=== PATIENT | female | born 1975 | race Caucasian/White ===

== ENCOUNTER 2023-05-06 00:13 | Day surgery (SDC) | payer BC, SELFPAY ==
[2023-04-29 12:50] VITALS: BMI 32.0
--- NOTE | 2023-04-29 12:56 | PC.NURSE ---
Report to the Outpatient Waiting Room, entrance under the green pavilion located off [facility], at time _1100_ on date _05/06/23_. Planned Procedure Time: __1300_. Time changes happen often and if your time is changed the preop area will call you the afternoon before. - You and your visitor will be asked to self-screen and do not enter if you have any COVID symptoms. - A mask is optional within the hospital at this time. Patients may have clear liquids (water, carbonated beverages, clear teas, apple juice) until 3 hours prior to surgery with a maximum of 20 ounces. - No food from midnight until time of surgery - Infants may have breast milk until 4 hours before surgery, formula 6 hours prior to surgery. - Children will be allowed to drink immediately following surgery. If applicable, please bring a bottle or sippy cup to assist with drinking. Juice, water, soda, and popsicles are readily available. For infants on formula, please bring formula the day of surgery. Pacifiers are allowed. Take the following medications with a SIP of water the morning of surgery: NONE____ DO NOT STOP ANY OF YOUR OTHER PRESCRIPTION MEDICATIONS PRIOR TO SURGERY ?EXCEPT THE FOLLOWING Medications to discontinue per physician VITAMINS/ SUPPLIMENTS Date to take last dose__05/03/23 Please no make-up, nail gambian, hairspray, perfume, deodorant, or body powder the day of surgery. No jewelry (including any body piercings) or valuables the day of surgery, leave them at home. Please take a shower or bath the night before, or the morning of, surgery with an antibacterial soap. Wear comfortable, loose fitting clothing. Children are encouraged to wear pajamas. - Jewelry must be removed prior to entering the operating room. Rings and piercings that are not removed may be cut off. - The hospital will not accept responsibility for valuables. - Please leave all valuables, including medications, at home the day of surgery. If you are going home after surgery, a licensed tractor trailer truck driver must drive you home. - NO public transportation without another adult if you receive anesthesia. - We recommend that an adult stay with you for 24 hours following discharge. - We also recommend that you do not drive, make important decision, drink alcoholic beverages, or take any drugs that were not prescribed by your health care provider for at least 24 hours after your discharge time. For Pediatric surgeries, we recommend two adults accompany the child home. Follow any additional instructions given to you from your surgeon. If you or anyone in your household have experienced Covid symptoms in the past week, please notify your surgeon or the nurse liaison at the phone number below for possible testing. Telephone instructions given to _PATIENT___and asked if any additional questions and then verbalized understanding. Patient advised to call surgeon office or pre surgery nurse liaison [phone] if any additional questions.
--- NOTE | 2023-05-05 14:17 | P.PNAN_ITS ---
Anes - Initial Pre Proc Eval Procedure: Operation Date: 05/06/23 12:00 Proposed Procedures p Excision Bita Duct Cyst - Jorgito Girard MD Date/Time: 05/05/23 14:17 Surgeon: Jorgito Girard MD Pre Op Diagnosis: bita duct cyst Patient Data Age: 47 Gender: F Height: 1.68 m Weight: 90 kg Allergies Allergy/AdvReac Type Severity Reaction Status Date / Time fentanyl AdvReac Intermediate ITCHING, Verified 05/06/23 10:21 HEART RACING, N/V metronidazole AdvReac Intermediate Numbness Verified 05/06/23 10:21 oxycodone AdvReac Intermediate ITCHING, Verified 05/06/23 10:21 HEART RACING, N/V Home Medications Medication Instructions Recorded Confirmed Type Adults Multivitamin 1 tab-cap PO DAILY 04/29/23 04/29/23 History Lactobac.acidophilus-Bifido.animalis 1 tablet PO DAILY 04/29/23 04/29/23 History 1.5 billion cell chewable tablet estradiol 0.01% (0.1 mg/gram) 1 g vaginal 2XW 04/29/23 05/06/23 History vaginal cream guar gum 1 gram chewable tablet 1 g PO DAILY 04/29/23 04/29/23 History amoxicillin 875 mg-potassium 1 tablet PO BID #20 tabs 04/30/23 05/06/23 Rx clavulanate 125 mg tablet Patient hx anesthesia problems: post op nausea/vomiting Family hx anesthesia problems: none Results Review: All pre-operative results and documents have been reviewed as part of the pre- operative evaluation. [facility] Past Medical History Medical History (Updated 05/05/23 @ 14:18 by Adam Rayo DO) PONV (postoperative nausea and vomiting) Surgical History Surgical History (Updated 02/04/23 @ 06:14 by Douglas Hebert MD) History of cholecystectomy (2000) History of tonsillectomy History of vaginal hysterectomy (2014) Social History Social History Smoking status: Never smoker Alcohol intake: current Drinks per week: 1 Substance use: never Living arrangements: with family Anes - Eval Final PreProcedure Day of Procedure 05/05/23 14:17 Patient weight: obese Heart: regular rate and rhythm Lungs: clear to auscultation Airway: Mallampati scale class II Neurological: alert and oriented Last oral intake: >/= 8 hours ASA classification: II Emergent: no Anesthetic plan: proceed Anesthesia type and monitoring: general GIVS and standard monitoring Results Review: All pre-operative results and documents have been reviewed as part of the pre- operative evaluation. Informed Consent: The patient's anesthetic plan and its attendant risks and benefits were discussed with the patient/family/POA. Questions were solicited and answers provided to the satisfaction of the patient/family/POA.
[2023-05-06] VITALS (9 sets, daily range): BP systolic 99–133; BP diastolic 60–88; PULSE 20–91; RESP 10–20; TEMP 36.1–37.2; O2SAT 99–100; BMI 33.8
[2023-05-06] MEDS: ACETAMINOPHEN 500 MG TABLET 1000 MG PO (10:38)
[2023-05-06] MEDS: LACTATED RINGERS 1,000 ML 30 ML IV CONT ×2 (10:38→14:43)
--- NOTE | 2023-05-06 12:12 | PM.IMHP ---
H&P: HPI History of Present Illness Date/Time: 05/06/23 12:12 Chief Complaint: Bulge Narrative: 48 y/o witha bulge at the vaginal introitus. She had a consultation with urology. MRI showed this bulge to be a bita's duct cyst. She would like to have it excised. Review of Systems Review of Systems: All systems reviewed & are unremarkable except as noted in HPI and below PMFSH Past Medical History Medical History PONV (postoperative nausea and vomiting) Surgical History Surgical History History of cholecystectomy (2000) History of tonsillectomy History of vaginal hysterectomy (2014) Social History Social History Smoking status: Never smoker Alcohol intake: current Drinks per week: 1 Substance use: never Living arrangements: with family Meds Home Medications and Allergies Home Medications Medication Instructions Recorded Confirmed Type Adults Multivitamin 1 tab-cap PO DAILY 04/29/23 04/29/23 History Lactobac.acidophilus-Bifido.animalis 1 tablet PO DAILY 04/29/23 04/29/23 History 1.5 billion cell chewable tablet estradiol 0.01% (0.1 mg/gram) 1 g vaginal 2XW 04/29/23 05/06/23 History vaginal cream guar gum 1 gram chewable tablet 1 g PO DAILY 04/29/23 04/29/23 History amoxicillin 875 mg-potassium 1 tablet PO BID #20 tabs 04/30/23 05/06/23 Rx clavulanate 125 mg tablet Allergies Allergy/AdvReac Type Severity Reaction Status Date / Time fentanyl AdvReac Intermediate ITCHING, Verified 05/06/23 10:21 HEART RACING, N/V metronidazole AdvReac Intermediate Numbness Verified 05/06/23 10:21 oxycodone AdvReac Intermediate ITCHING, Verified 05/06/23 10:21 HEART RACING, N/V Vital Signs Vital Signs - 24 hr 05/06/23 10:49 Temperature 37.2 C Pulse Rate 91 Respiratory Rate 16 Blood Pressure 132/73 Pulse Oximetry 99 Exam Const: Orientation/consciousness: patient oriented x3 Other: Well-developed, well-nourished female in no acute distress. Neck: Thyroid: thyroid normal Lymphatic: no lymphadenopathy noted (in neck, axilla or inguinal nodes) Resp: Effort & Inspection: normal respiratory effort Auscultation: clear to auscultation bilaterally Cardio: Rate: regular rate Rhythm: regular rhythm Heart sounds: S1 normal heart sound present and S2 normal heart sound present GI: Other: ABD: Soft, nontender, nondistended. No guarding or rebound tenderness. No hepatosplenomegaly. : General: Yes no CVA tenderness Other: External genitalia: normal female hair distribution, without lesion. Urethral meatus: no lesion, non prolapsed. Bladder: no mass, nontender Vagina: well-estrogenized, without lesion or discharge. A 1.5 cm fluctuant mass is adjacent to the urethra on the left. The vaginal cuff is well-supported. Cervix: absent. Uterus: absent. Adnexa: no mass or tenderness. 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 P: She desires excision of Bita's duct cyst. She understands risks of surgery to include risks of anesthesia, risks of pain, infection, bleeding, blood products, thromboembolic phenomena and damage to adjacent structures such as bowel, bladder, ureters, blood vessels and nerves. She understands all these risks and elects to proceed with surgery.
--- NOTE | 2023-05-06 12:16 | WPDHPUPDATE1 ---
History and Physical Update Update Date/Time: 05/06/23 12:16 History and Physical has been reviewed, including an updated exam of the patient. There are NO changes in the patient's condition. Risks, benefits, and alternatives have been discussed and questions answered. Patient agrees to proceed with procedure.
[2023-05-06] MEDS: LIDO 1%/EPINEPHRINE 1:100,000 50 ML VIAL 10 ML INFILTRATE (12:22)
[2023-05-06] MEDS: METHYLENE BLUE 0.5% INJ 10 ML AMPULE 20 ML IRRIGATION (13:40)
[2023-05-06] MEDS: ceFAZolin SODIUM 1 GM VIAL IV PUSH (13:48)
--- NOTE | 2023-05-06 14:50 | W.PM.PROC2 ---
Procedure Note - Detailed Date of Procedure 05/06/23 Pre-op Diagnosis Vaginal wall Bita's duct cyst Post-op Diagnosis Same Procedure Performed Excision of vaginal wall cyst Repair of cystotomy Surgeon Jorgito Girard MD Anesthesia General and Local (1% lidocaine) Findings Elongated, fluctuant vaginal wall cyst anteriorly, approximately 2.5 x 4 cm, arising from the left side and just crossing the midline. On cystoscopy there was a small defect at the bladder neck. Description of Procedure The patient was taken to the operating room where she was prepared and draped in the usual sterile fashion in the dorsal lithotomy position. The bladder was drained with a hinton catheter. The vaginal epithelium underlying the vaginal wall cyst was infiltrated with 5 mL 1% lidocaine. The epithelium was elevated with Allis clamps and a longitudinal incision was made with a #15 scalpel. Dissection was performed laterally. The cyst ruptured and brown fluid was noted. A portion of the cyst wall was excised. There was some proximal cyst on the left that was unable to be dissected free. At this point the medial cyst bed was suspicious for injury of the urinary tract. Dr. Shah of Urology was consulted. The bladder was filled with saline and methylene blue, and spill was noted. He performed cystoscopy and found a small cystotomy just at the bladder neck. Both ureteral orifices were remote from the injury. He placed stents into the ureters bilaterally. The bladder defect was repaired in two layers with 3-0 Vicryl and the repair demonstrated to be watertight. Transurethral hinton was reintroduced and stents removed. The vaginal epithelium was reapproximated with 2-0 vicryl in running fashion. Hemostasis was excellent. Sponge, lap, needle and instrument counts were correct. The patient was awakened and taken to the recovery room in stable condition. I was present and scrubbed through the entire procedure. I spoke with the patient's family, and then later with the patient herself, and we reviewed the intraoperative course in detail, as well as the cystotomy and repair. She was able to be discharged to home to continue the hinton catheter. She will follow up with urology as an outpatient. Estimated Blood Loss 150 Drains Yes (hinton) Packing No Pathology Yes (vaginal cyst wall) Complications Other complications (Small cystotomy noted just at the bladder neck.) Condition Stable Disposition PACU
[2023-05-06] MEDS: MORPHINE SULFATE INJ (*CRX) 10 MG/ML AMP 2 MG IV PUSH ×2 (15:23→15:32)
--- NOTE | 2023-05-06 17:38 | W.PM.PROC2 ---
Procedure Note - Detailed Date of Procedure 05/06/23 Pre-op Diagnosis bebo duct cyst Post-op Diagnosis Same (Cystotomy) Procedure Performed Cystoscopy, bilateral internal external ureteral stent insertion, transvaginal cystotomy repair Surgeon Wu Shah MD Anesthesia General Findings 1cm bladder neck cystotomy Description of Procedure Urology was called intraoperatively due to concern for bladder injury at the time of Phan duct cyst surgery. Patient was identified in the lithotomy position inspection did not clearly reveal injury, the bladder was then filled with 200cc of methylene blue/normal saline and injury was noted at the bladder neck. This point Mtz catheter was removed cystoscopy was performed revealing injury at the very distal bladder neck away from the ureteral orifices. Prior to repair bilateral internal-external ureteral stents were inserted to avoid ureteral injury. We then performed a 2 layer closure with 3-0 Vicryl suture. Bladder was again filled with 200cc of methylene blue/normal saline and there was no extravasation. We then reinspected cystoscopically with repair noted away from the ureteral orifices. Ureteral catheter was removed. A 18 F Mtz catheter was inserted and left for gravity drainage. The case was then turned back over to Dr. Girard. Plan Mtz catheter for 10 to 14 days. Plan cystogram and Mtz removal at urology office. Estimated Blood Loss 150 Condition Stable Disposition PACU
== END 2023-05-06 16:41 | disposition home or self-care (01) ==
PROVIDERS: PCP Family Medicine Adolescent Medicine; Visit Provider Obstetrics & Gynecology
PROC: (CPT 57135; principal; 2023-05-06 12:00)
DX: Q52.4 Other congenital malformations of vagina (principal); N99.71 Accidental puncture and laceration of a genitourinary system organ or structure during a genitourinary system procedure; E66.9 Obesity, unspecified; Z68.33 Body mass index [BMI] 33.0-33.9, adult; Z79.890 Hormone replacement therapy; Z79.2 Long term (current) use of antibiotics; Z79.899 Other long term (current) drug therapy
CPT/HCPCS: 57135; 53899; 88305; A9270; C1758; C1769; J0330; J0690; J1100; J2250; J2270; J2405; J2704; J7120; Q9968

== ENCOUNTER 2023-05-13 08:08 | Outpatient (CLI) | payer BC, SELFPAY ==
--- NOTE | ~2023-05-13 | XR_ITS ---
EXAMINATION: XR cystogram DATE: 05/13/2023 08:53 INDICATION: Injury of bladder neck status post repair. TECHNIQUE: Water-soluble contrast was gravity-infused through the patient's Mtz catheter. Multiple fluoroscopic images were obtained. Fluoroscopy exposure time was 0.2 minutes. The total number of kathie ges was 8. COMPARISON: None. FINDINGS: There is no extraluminal leakage of contrast. There is no ureteral reflux. IMPRESSION: 1. No extraluminal leakage of contrast. Reviewed, dictated and finalized at location A.
== END 2023-05-13 08:09 | disposition home or self-care (01) ==
PROVIDERS: PCP Family Medicine Adolescent Medicine; Visit Provider Urology
DX: S37.20XA Unspecified injury of bladder, initial encounter (principal); X58.XXXA Exposure to other specified factors, initial encounter
CPT/HCPCS: 51600; 74430; Q9967